=== PATIENT | male | born 1955 | race Caucasian/White ===

== ENCOUNTER 2021-11-21 17:19 | Emergency (ER) | payer OTHER, SELFPAY ==
[2021-11-21] VITALS (10 sets, daily range): BP systolic 149–160; BP diastolic 71–86; PULSE 84–112; RESP 10–49; TEMP 36.7; O2SAT 92–99
--- NOTE | 2021-11-21 17:28 | DI.RAD.S_ITS ---
PROCEDURE: XR CHEST 1V INDICATIONS: dyspnea, tachycardia TECHNIQUE: One view of the chest was acquired. COMPARISON: None. FINDINGS: Surgical changes and devices: None. Lungs and pleura: Lungs are clear. No pleural effusions or pneumothorax. Mediastinum: Mediastinal contours appear normal. Heart size is normal. Bones and chest wall: Multiple right-sided healed old healed rib fractures present. Orthopedic hardware noted in the proximal right humerus. IMPRESSION: No acute cardiopulmonary findings Approved by: Jose Alejandro Oquendo M.D. on 11/21/2021 at 17:11
[2021-11-21 17:56] LABS: Add Manual Diff / Slide Review NO; Basophils Absolute Auto 0 /uL (0-100); Basophils Percent Auto 0.5 % (0-2); Eosinophils Absolute Auto 200 /uL (0-450); Eosinophils Percent Auto 1.8 % (2-4); Hematocrit 39.3 % (41-53); Lymphocytes Absolute Auto 2100 /uL (1100-4500); Lymphocytes Percent Auto 22.7 % (25-40); Mean Corpuscular HGB Conc 33.1 % (30-36); Mean Corpuscular Hemoglobin 29.8 PG (26-34); Mean Corpuscular Volume 89.9 fL (80-100); Monocytes Absolute Auto 700 /uL (0-900); Monocytes Percent Auto 7.9 % (3-14); Neutrophils Absolute Auto 6300 /uL (1500-7000); Neutrophils Percent Auto 67.1 % (50-75); Platelet Count 205 X10^3/uL (150-400); Red Blood Cell Count 4.37 X10^6/uL (4.5-5.9); Red Cell Distribution Width 15.9 % (11.6-14.8); White Blood Cell Count 9.3 X10^3/uL (4.5-11.0)
[2021-11-21 17:57] LABS: Alanine Aminotransferase 26 IU/L (<50); Albumin 4.3 g/dL (3.5-5.0); Albumin Globulin Ratio 1.4 (1.0-2.8); Alkaline Phosphatase 108 U/L (38-126); Aspartate Aminotransferase 25 IU/L (17-59); BUN Creatinine Ratio 14.8 (6-22); Bilirubin Total 0.4 mg/dL (0.2-1.3); Blood Urea Nitrogen 22 mg/dL (9-20); Calcium 8.9 mg/dL (8.4-10.2); Carbon Dioxide 22 mmol/L (22-32); Chloride 109 mmol/L (98-107); Estimated Glomerular Filt Rate 47.5 mL/min (>60); Globulin 3.1 g/dL (1.7-4.1); Glucose 137 mg/dL (80-110); HEMOLYSIS 16 (0-50); Potassium 3.8 mmol/L (3.4-5.1); Sodium 139 mmol/L (137-145); Total Protein 7.4 g/dL (6.3-8.2)
[2021-11-21 17:59] LABS: COVID19 -Nasal RAPID Negative (Negative)
[2021-11-21 18:02] LABS: Creatine Kinase 104 U/L (55-170)
[2021-11-21 18:05] LABS: NT-proBNP (BNP-Adult 18+) 41 pg/mL (<125)
[2021-11-21 18:14] LABS: Troponin I < 0.012 ng/mL (0.01-0.034)
[2021-11-21 18:17] LABS: CKMB % Relative Index 1.6 % (1.5-5.0); Creatine Kinase MB 1.69 ng/mL (<2.37)
--- NOTE | 2021-11-21 18:26 | ED.SOB ---
HPI - SOB/Dyspnea General Chief Complaint: Shortness of Breath/Dyspnea Stated Complaint: difficulty breathing Time Seen by Provider: 11/21/21 17:37 Source: patient Mode of arrival: Ambulatory History of Present Illness HPI Narrative: Male nonsmoker with history of movement disorder presents with a chief complaint of weight describes as trouble breathing for the past week or 10 days. He denies any exertional component and is not dizzy, weak or lightheaded. He denies any cough or chest pain. He has had no fever or chills. He denies nausea, vomiting or diarrhea. He denies runny nose or sore throat but does feel like his throat is dry. He has had relatively recent travel, about 2 months ago he came here from [place]. Review of Systems Review of Systems Narrative: GENERAL: Denies chills, fatigue, malaise, fever, sweats. HEENT: Denies sinus pain, ear pain, sore throat, difficulty swallowing, dizziness. RESPIRATORY: See HPI CARDIOVASCULAR: Denies chest pain, palpitations, orthopnea, edema, GASTROINTESTINAL: Denies nausea, vomiting, abdominal pain, diarrhea, constipation, melena. : Denies dysuria, frequency, incontinence, hematuria, urinary retention. MUSCULOSKELETAL: denies weakness, joint pain, or bony pain SKIN: Denies rash, skin lesions, or other NEUROLOGIC: Denies weakness, headache, numbness, change in speech, confusion, seizures, incoordination. PSYCHIATRIC: No concerning psychosocial issues. 12 point review of systems is negative except for those stated above Exam Narrative Exam Narrative: GENERAL: [62 year old patient appears stated age. Well-developed patient, in mild distress. Subtle movement disorder noted HEAD: Atraumatic. Normocephalic. EYES: Pupils equal round and reactive. Extraocular motions intact. No scleral icterus. No injection or drainage. ENT: Dry mucous membranes Nose without bleeding, purulent drainage. Throat without erythema, tonsillar hypertrophy or exudate. Airway patent. NECK: Trachea midline. Non tender CARDIOVASCULAR: Tachycardic but regular rhythm without murmurs, gallops, or rubs. RESPIRATORY: Clear to auscultation. Breath sounds equal bilaterally. No wheezes, rales, or rhonchi. GASTROINTESTINAL: Abdomen soft, non-tender, nondistended. EXTREMITIES: No edema or joint tenderness. BACK: Nontender without deformity or crepitance. No flank tenderness. NEURO: AOx3. SKIN: No rash or erythema of visible areas Initial Vital Signs Initial Vital Signs: Vital Signs Temperature 98.1 F 11/21/21 17:28 Pulse Rate 112 H 11/21/21 17:28 Respiratory Rate 24 11/21/21 17:28 Blood Pressure 155/86 H 11/21/21 17:28 Pulse Oximetry 96 11/21/21 17:28 Course Orders Ordered: ED Orders 11/21/21 17:28 XR chest 1V Stat EKG-12 Lead Stat Measure peak expiratory flow ONCE RT Consult Eval and Treat Now 11/21/21 17:30 COVID19 -Nasal swab/Pre-Proc Stat Complete Blood Count AUTO DIFF Stat Comprehensive Metabolic Panel Stat D Dimer Stat Lactate (Lactic Acid) Stat NT-proBNP (BNP-Adult 18+) Stat Troponin & CK Cardiac Panel Stat Discontinued Medications Sodium Chloride (Normal Saline 0.9%) 1,000 mls @ 1,000 mls/hr IV BOLUS ONE Stop: 11/21/21 19:32 Last Infusion: 11/21/21 20:45 Dose: 0 mls/hr Documented by: Admin: 11/21/21 18:55 Dose: 1,000 mls/hr Documented by: ODALIS Vital Signs Vital signs: Vital Signs - 8 hr 11/21/21 18:30 11/21/21 19:00 11/21/21 19:30 Pulse Rate 103 H 92 H 90 Respiratory Rate 20 16 20 Blood Pressure 160/74 H Pulse Oximetry 95 97 96 11/21/21 20:00 11/21/21 20:25 11/21/21 20:26 Pulse Rate 84 84 84 Respiratory Rate 20 24 26 H Blood Pressure 149/71 H Pulse Oximetry 99 99 99 MDM - SOB/Dyspnea Lab Data Result diagrams: 11/21/21 17:30 11/21/21 17:30 Labs: Lab Results 11/21/21 11/21/21 11/21/21 Range/Units 17:30 17:30 17:30 WBC 9.3 (4.5-11.0) X10^3/uL RBC 4.37 L (4.5-5.9) X10^6/uL Hgb 13.0 L (13.5-17.5) g/dL Hct 39.3 L (41-53) % MCV 89.9 (80-100) fL MCH 29.8 (26-34) PG MCHC 33.1 (30-36) % RDW 15.9 H (11.6-14.8) % Plt Count 205 (150-400) X10^3/uL Neut % (Auto) 67.1 (50-75) % Lymph % (Auto) 22.7 L (25-40) % [place] % (Auto) 7.9 (3-14) % Eos % (Auto) 1.8 L (2-4) % Baso % (Auto) 0.5 (0-2) % Neut # (Auto) 6300 (6695-0860) /uL Lymph # (Auto) 2100 (7201-8637) /uL [place] # (Auto) 700 (0-900) /uL Eos # (Auto) 200 (0-450) /uL Baso # (Auto) 0 (0-100) /uL D-Dimer (<230) ng/mL Sodium 139 (137-145) mmol/L Potassium 3.8 (3.4-5.1) mmol/L Chloride 109 H (98-107) mmol/L Carbon Dioxide 22 (22-32) mmol/L BUN 22 H (9-20) mg/dL Creatinine 1.49 H (0.66-1.25) mg/dL Estimated GFR 47.5 L (>60) mL/min BUN/Creatinine Ratio 14.8 (6-22) Glucose 137 H (80-110) mg/dL Lactate 1.8 (0.7-2.1) mmol/L Calcium 8.9 (8.4-10.2) mg/dL Total Bilirubin 0.4 (0.2-1.3) mg/dL AST 25 (17-59) IU/L ALT 26 (<50) IU/L Alkaline Phosphatase 108 (38-126) U/L Total Creatine Kinase (55-170) U/L CK-MB (CK-2) (<2.37) ng/mL CK-MB (CK-2) Rel Index (1.5-5.0) % Troponin I (0.01-0.034) ng/mL NT-Pro-B Natriuret Pep 41 (<125) pg/mL Total Protein 7.4 (6.3-8.2) g/dL Albumin 4.3 (3.5-5.0) g/dL Globulin 3.1 (1.7-4.1) g/dL Albumin/Globulin Ratio 1.4 (1.0-2.8) SARS-CoV-2 (PCR) (Negative) 11/21/21 11/21/21 11/21/21 Range/Units 17:30 17:30 17:30 WBC (4.5-11.0) X10^3/uL RBC (4.5-5.9) X10^6/uL Hgb (13.5-17.5) g/dL Hct (41-53) % MCV (80-100) fL MCH (26-34) PG MCHC (30-36) % RDW (11.6-14.8) % Plt Count (150-400) X10^3/uL Neut % (Auto) (50-75) % Lymph % (Auto) (25-40) % [place] % (Auto) (3-14) % Eos % (Auto) (2-4) % Baso % (Auto) (0-2) % Neut # (Auto) (4820-8994) /uL Lymph # (Auto) (5462-1097) /uL [place] # (Auto) (0-900) /uL Eos # (Auto) (0-450) /uL Baso # (Auto) (0-100) /uL D-Dimer 224 (<230) ng/mL Sodium (137-145) mmol/L Potassium (3.4-5.1) mmol/L Chloride (98-107) mmol/L Carbon Dioxide (22-32) mmol/L BUN (9-20) mg/dL Creatinine (0.66-1.25) mg/dL Estimated GFR (>60) mL/min BUN/Creatinine Ratio (6-22) Glucose (80-110) mg/dL Lactate (0.7-2.1) mmol/L Calcium (8.4-10.2) mg/dL Total Bilirubin (0.2-1.3) mg/dL AST (17-59) IU/L ALT (<50) IU/L Alkaline Phosphatase (38-126) U/L Total Creatine Kinase 104 (55-170) U/L CK-MB (CK-2) 1.69 (<2.37) ng/mL CK-MB (CK-2) Rel Index 1.6 (1.5-5.0) % Troponin I < 0.012 (0.01-0.034) ng/mL NT-Pro-B Natriuret Pep (<125) pg/mL Total Protein (6.3-8.2) g/dL Albumin (3.5-5.0) g/dL Globulin (1.7-4.1) g/dL Albumin/Globulin Ratio (1.0-2.8) SARS-CoV-2 (PCR) Negative (Negative) Imaging Data Chest x-ray: Radiologist's Impression: [address] [address] XRay Report Signed Patient: Fabian Kim MR#: [id number] : 1955 Acct:[id number] Age/Sex: 66 / M Date of Service: 11/21/21 Loc: ED Accession Number: [id number] ?? Procedure: XR chest 1V Ordering Provider: Eladio Mao D.O. PROCEDURE:? XR CHEST 1V ? INDICATIONS:? dyspnea, tachycardia ? TECHNIQUE:? One view of the chest was acquired.? ? COMPARISON:? None. ? FINDINGS:? ? Surgical changes and devices:? None.? ? Lungs and pleura:? Lungs are clear.? No pleural effusions or pneumothorax.? ? Mediastinum:? Mediastinal contours appear normal.? Heart size is normal.? ? Bones and chest wall:? Multiple right-sided healed old healed rib fractures present.? Orthopedic hardware noted in the proximal right humerus. ? IMPRESSION:? No acute cardiopulmonary findings ? ? ? Approved by: Jose Alejandro Oquendo M.D. on 11/21/2021 at 17:11? ECG Data Interpretation: Sinus tachycardia with regular rhythm rate [108 ] and free of any signs of ischemia or ectopy. No ST segmental elevation or depression. No T wave inversions MDM Narrative Medical decision making narrative: Multiple etiologies for patient's symptoms considered including: [ Pneumonia versus COVID versus pulmonary embolism versus CHF versus other] Patient's symptoms improved over duration of stay with above-stated therapies. Findings and discharge diagnosis discussed with patient/family followed by verbalization of understanding Return precautions discussed with patient/family whom verbalize understanding. Discharge Plan Departure Patient Disposition: Home Clinical Impression: Shortness of Breath Instructions: DI for Shortness of Breath Activity Restrictions/Additional Instructions: *You have been diagnosed with [shortness of breath, likely some dehydration, labs and x-ray are very reassuring. There is no indication of heart attack, blood clot, pneumonia or COVID *What to do: *Please continue to take your regular medications as directed. [ ] New medication prescriptions sent to your pharmacy: [ ] [ ] New medication written as a paper prescription [ x] No new medications given *Please follow up with your primary care provider in 2-3 days, call for an appointment. Let them know you were seen in the Emergency Department and that we ask that you be seen in follow up. We will electronically transmit a record of today's note if your PCP is in our system *If you do not have a primary care provider please contact the [facility] Resource line at [phone]. They will ask some questions about your medical history and help get you set up with a doctor in the community. *Return to Emergency Department if you should have any new, worsening or concerning symptoms, such as [fever greater than 101 F, shaking chills, worsening pain, persistent vomiting or other bothersome symptoms] Referrals: Miscellaneous,Doctor, MD [Primary Care Provider] -
[2021-11-21 18:50] LABS: D Dimer 224 ng/mL (<230)
[2021-11-21] MEDS: SODIUM CHLORIDE 0.9% 1,000 ML 1000 ML IV (18:55)
[2021-11-21 18:57] LABS: Lactate (Lactic Acid) 1.8 mmol/L (0.7-2.1)
== END 2021-11-21 21:05 | disposition home or self-care (01) ==
PROVIDERS: Emergency Medicine; Emergency Provider Emergency Medicine
DX: R06.02 Shortness of breath (principal); Z20.822 Contact with and (suspected) exposure to COVID-19
CPT/HCPCS: 36415; 71045; 80053; 82550; 82553; 83605; 83880; 84484; 85025; 85379; 87635; 93005; 96360; 96361; 99284; C9803

== ENCOUNTER 2021-12-09 16:44 | Emergency (ER) | payer OTHER, SELFPAY ==
[2021-12-09] VITALS (15 sets, daily range): BP systolic 126–172; BP diastolic 70–102; PULSE 87–112; RESP 14–38; TEMP 36.8; O2SAT 92–98; BMI 36.5
--- NOTE | 2021-12-09 16:55 | DI.RAD.S_ITS ---
PROCEDURE: XR CHEST 2V INDICATIONS: shortness of breath TECHNIQUE: 2 views of the chest were acquired. COMPARISON: [facility], , XR CHEST 1V, 11/21/2021, 17:44. FINDINGS: Surgical changes and devices: Postoperative change of the right shoulder can be seen. Lungs and pleura: Lungs are clear. No pleural effusions or pneumothorax. Mediastinum: Mediastinal contours are normal. Heart size is normal. Atherosclerotic calcification of the aortic arch is noted. Bones and chest wall: No suspicious bony abnormalities. Degenerative changes are seen throughout. Apparent remote trauma can be seen of the left distal clavicle. Remote right lateral rib fractures are seen. Soft tissues appear unremarkable. IMPRESSION: No acute cardiopulmonary process is seen. Postoperative and degenerative changes are seen. Remote posttraumatic changes are noted. Dictated by: Peter Nolasco M.D. on 12/09/2021 at 16:35 Approved by: Peter Nolasco M.D. on 12/09/2021 at 16:36
[2021-12-09 17:11] LABS: Add Manual Diff / Slide Review NO; Basophils Absolute Auto 0 /uL (0-100); Basophils Percent Auto 0.6 % (0-2); Eosinophils Absolute Auto 200 /uL (0-450); Eosinophils Percent Auto 2.6 % (2-4); Hematocrit 34.9 % (41-53); Hemoglobin 11.5 g/dL (13.5-17.5); Lymphocytes Absolute Auto 1400 /uL (1100-4500); Lymphocytes Percent Auto 20.3 % (25-40); Mean Corpuscular HGB Conc 33.1 % (30-36); Mean Corpuscular Hemoglobin 29.6 PG (26-34); Mean Corpuscular Volume 89.4 fL (80-100); Monocytes Absolute Auto 400 /uL (0-900); Monocytes Percent Auto 6.7 % (3-14); Neutrophils Absolute Auto 4600 /uL (1500-7000); Neutrophils Percent Auto 69.8 % (50-75); Platelet Count 166 X10^3/uL (150-400); Red Cell Distribution Width 15.2 % (11.6-14.8); White Blood Cell Count 6.6 X10^3/uL (4.5-11.0)
[2021-12-09 17:21] LABS: Alanine Aminotransferase 29 IU/L (<50); Albumin 3.9 g/dL (3.5-5.0); Albumin Globulin Ratio 1.4 (1.0-2.8); Alkaline Phosphatase 92 U/L (38-126); Aspartate Aminotransferase 24 IU/L (17-59); BUN Creatinine Ratio 15.9 (6-22); Bilirubin Total 0.4 mg/dL (0.2-1.3); Blood Urea Nitrogen 17 mg/dL (9-20); Calcium 8.9 mg/dL (8.4-10.2); Carbon Dioxide 26 mmol/L (22-32); Chloride 106 mmol/L (98-107); Estimated Glomerular Filt Rate > 60.0 mL/min (>60); Globulin 2.7 g/dL (1.7-4.1); Glucose 101 mg/dL (80-110); HEMOLYSIS < 15 (0-50); Potassium 3.7 mmol/L (3.4-5.1); Sodium 138 mmol/L (137-145); Total Protein 6.6 g/dL (6.3-8.2)
[2021-12-09 17:25] LABS: COVID19 -Nasal RAPID Negative (Negative)
[2021-12-09] MEDS: ALBUTEROL 2.5 MG/3 ML NEB (ADULT) INH (18:09)
[2021-12-09 18:39] LABS: COVID19 -Nasal RAPID Negative (Negative)
--- NOTE | 2021-12-09 18:42 | ED.SOB ---
HPI - SOB/Dyspnea General Chief Complaint: Shortness of Breath/Dyspnea Stated Complaint: Sob/cough/trouble swallowing Time Seen by Provider: 12/09/21 17:48 Source: patient Mode of arrival: Ambulatory Limitations: no limitations History of Present Illness HPI Narrative: 66-year-old male has a history of type 2 diabetes presenting today with worsening shortness of breath. He has had ongoing for the last 6 weeks. he was seen evaluated here on November 21, had cardiac he is workup and chest x-ray. He was discharged home. He said he really has not had much improvement. He complains of conversational dyspnea some exertional dyspnea but denies any orthopnea he has no chest tightness or pain or palpitations. He has not had any fever chills or body aches. He moved from [place] approximately 2-3 months ago. He sometimes coughs up phlegm, but denies any hemoptysis. He has not had any body aches fevers or chills. Today it is persistent. Related Data Previous Rx's Medication Instructions Recorded furosemide 20 mg tablet (Lasix) 20 mg PO QAM #3 tab 12/09/21 Allergies Allergy/AdvReac Type Severity Reaction Status Date / Time No Known Drug Allergies Allergy Verified 12/09/21 16:47 Review of Systems Review of Systems Narrative: GENERAL: Denies chills, fatigue, malaise, fever, sweats, travel HEENT: Denies sinus pain, ear pain, sore throat, difficulty swallowing, neck pain RESPIRATORY: See HPI CARDIOVASCULAR: Denies chest pain, palpitations, orthopnea, edema GASTROINTESTINAL: Denies nausea, vomiting, abdominal pain, diarrhea, constipation, melena. : Denies dysuria, frequency, incontinence, hematuria, urinary retention, flank pain. MUSCULOSKELETAL: Denies weakness, joint pain, or bony pain SKIN: No rash, no erythema, no pruritus NEUROLOGIC: Denies weakness, dizziness, headache, numbness, change in speech, confusion PSYCHIATRIC: No concerning psychosocial issues. 12 point review of systems is negative except for those stated above and HPI Patient History Social History Smoking Status: Current every day smoker Smoking Status: Current every day smoker tobacco type: cigarettes Substance Use Type: marijuana Exam Initial Vital Signs Initial Vital Signs: Vital Signs Temperature 98.3 F 12/09/21 16:47 Pulse Rate 104 H 12/09/21 16:47 Respiratory Rate 24 12/09/21 16:47 Blood Pressure 154/76 H 12/09/21 16:47 Pulse Oximetry 97 12/09/21 16:47 GENERAL: Alert 66 male appears older than stated a HEENT: Head atraumatic,EOMI, pupils reactive, face symmetric, moist mucous membranes CARDIOVASCULAR: Regular rate and rhythm without murmurs, rubs or gallops. RESPIRATORY: Breath sounds equal bilaterally, no wheezes rales or rhonchi. Mild conversational dyspnea ABDOMEN: Soft, nontender. Normoactive bowel sounds all 4 quadrants. No guarding or rebound. EXTREMITIES: Normal range of motion, no clubbing or edema. Neurovascularly intact NEUROLOGICAL: Alert and oriented x4 SKIN: Warm, dry, no laceration, no petechiae, no rashes or lesions. Course Orders Ordered: ED Orders 12/09/21 16:55 XR chest 2V Stat EKG-12 Lead Stat Measure peak expiratory flow ONCE RT Consult Eval and Treat Now 12/09/21 17:03 COVID19 -Nasal swab/Pre-Proc Stat Complete Blood Count AUTO DIFF Stat Comprehensive Metabolic Panel Stat Lactate (Lactic Acid) Stat 12/09/21 17:05 BNP [NT-proBNP (BNP-Adult 18+)] Stat D Dimer Stat Troponin & CK Cardiac Panel Stat 12/09/21 18:10 COVID19 -Nasal swab/Pre-Proc Stat 12/09/21 18:54 CT angio chest PE protocol Stat Discontinued Medications Albuterol (Albuterol 2.5 Mg/3 Ml Neb (Adult)) 2.5 mg INH NOW ONE Stop: 12/09/21 18:05 Last Admin: 12/09/21 18:09 Dose: 2.5 mg Documented by: INEZ Methylprednisolone (Methylprednisolone 125 Mg/2 Ml Vial) 125 mg IV NOW ONE Stop: 12/09/21 18:55 Last Admin: 12/09/21 18:58 Dose: 125 mg Documented by: YAIR Vital Signs Vital signs: Vital Signs - 8 hr 12/09/21 17:53 12/09/21 18:00 12/09/21 18:09 Pulse Rate 96 H 87 90 Respiratory Rate 24 16 24 Blood Pressure 142/70 H 145/71 H Pulse Oximetry 92 98 98 12/09/21 18:30 12/09/21 19:00 12/09/21 19:30 Pulse Rate 89 93 H 89 Respiratory Rate 19 Blood Pressure 144/85 H 141/101 H 143/73 H Pulse Oximetry 97 98 95 12/09/21 20:00 12/09/21 20:32 12/09/21 20:34 Pulse Rate 98 H 112 H 106 H Respiratory Rate 38 H 29 H Blood Pressure 172/78 H 126/102 H Pulse Oximetry 94 96 12/09/21 21:00 12/09/21 21:01 12/09/21 21:23 Pulse Rate 93 H 96 H 96 H Respiratory Rate 29 H 27 H 14 Blood Pressure 168/78 H 168/78 H Pulse Oximetry 97 96 96 MDM - SOB/Dyspnea Lab Data Result diagrams: 12/09/21 17:03 12/09/21 17:03 Labs: Lab Results 12/09/21 12/09/21 12/09/21 Range/Units 17:03 17:03 17:03 WBC 6.6 (4.5-11.0) X10^3/uL RBC 3.90 L (4.5-5.9) X10^6/uL Hgb 11.5 L (13.5-17.5) g/dL Hct 34.9 L (41-53) % MCV 89.4 (80-100) fL MCH 29.6 (26-34) PG MCHC 33.1 (30-36) % RDW 15.2 H (11.6-14.8) % Plt Count 166 (150-400) X10^3/uL Neut % (Auto) 69.8 (50-75) % Lymph % (Auto) 20.3 L (25-40) % [place] % (Auto) 6.7 (3-14) % Eos % (Auto) 2.6 (2-4) % Baso % (Auto) 0.6 (0-2) % Neut # (Auto) 4600 (0373-3075) /uL Lymph # (Auto) 1400 (9399-5461) /uL [place] # (Auto) 400 (0-900) /uL Eos # (Auto) 200 (0-450) /uL Baso # (Auto) 0 (0-100) /uL D-Dimer (<230) ng/mL Sodium 138 (137-145) mmol/L Potassium 3.7 (3.4-5.1) mmol/L Chloride 106 (98-107) mmol/L Carbon Dioxide 26 (22-32) mmol/L BUN 17 (9-20) mg/dL Creatinine 1.07 (0.66-1.25) mg/dL Estimated GFR > 60.0 (>60) mL/min BUN/Creatinine Ratio 15.9 (6-22) Glucose 101 (80-110) mg/dL Lactate (0.7-2.1) mmol/L Calcium 8.9 (8.4-10.2) mg/dL Total Bilirubin 0.4 (0.2-1.3) mg/dL AST 24 (17-59) IU/L ALT 29 (<50) IU/L Alkaline Phosphatase 92 (38-126) U/L Total Creatine Kinase (55-170) U/L CK-MB (CK-2) (<2.37) ng/mL CK-MB (CK-2) Rel Index (1.5-5.0) % Troponin I (0.01-0.034) ng/mL NT-Pro-B Natriuret Pep (<125) pg/mL Total Protein 6.6 (6.3-8.2) g/dL Albumin 3.9 (3.5-5.0) g/dL Globulin 2.7 (1.7-4.1) g/dL Albumin/Globulin Ratio 1.4 (1.0-2.8) SARS-CoV-2 (PCR) Negative (Negative) 12/09/21 12/09/21 12/09/21 Range/Units 17:03 17:05 17:05 WBC (4.5-11.0) X10^3/uL RBC (4.5-5.9) X10^6/uL Hgb (13.5-17.5) g/dL Hct (41-53) % MCV (80-100) fL MCH (26-34) PG MCHC (30-36) % RDW (11.6-14.8) % Plt Count (150-400) X10^3/uL Neut % (Auto) (50-75) % Lymph % (Auto) (25-40) % [place] % (Auto) (3-14) % Eos % (Auto) (2-4) % Baso % (Auto) (0-2) % Neut # (Auto) (4301-7759) /uL Lymph # (Auto) (4663-6513) /uL [place] # (Auto) (0-900) /uL Eos # (Auto) (0-450) /uL Baso # (Auto) (0-100) /uL D-Dimer 284 H (<230) ng/mL Sodium (137-145) mmol/L Potassium (3.4-5.1) mmol/L Chloride (98-107) mmol/L Carbon Dioxide (22-32) mmol/L BUN (9-20) mg/dL Creatinine (0.66-1.25) mg/dL Estimated GFR (>60) mL/min BUN/Creatinine Ratio (6-22) Glucose (80-110) mg/dL Lactate 1.0 (0.7-2.1) mmol/L Calcium (8.4-10.2) mg/dL Total Bilirubin (0.2-1.3) mg/dL AST (17-59) IU/L ALT (<50) IU/L Alkaline Phosphatase (38-126) U/L Total Creatine Kinase 128 (55-170) U/L CK-MB (CK-2) 1.87 (<2.37) ng/mL CK-MB (CK-2) Rel Index 1.5 (1.5-5.0) % Troponin I < 0.012 (0.01-0.034) ng/mL NT-Pro-B Natriuret Pep 513 H (<125) pg/mL Total Protein (6.3-8.2) g/dL Albumin (3.5-5.0) g/dL Globulin (1.7-4.1) g/dL Albumin/Globulin Ratio (1.0-2.8) SARS-CoV-2 (PCR) (Negative) 12/09/21 Range/Units 18:10 WBC (4.5-11.0) X10^3/uL RBC (4.5-5.9) X10^6/uL Hgb (13.5-17.5) g/dL Hct (41-53) % MCV (80-100) fL MCH (26-34) PG MCHC (30-36) % RDW (11.6-14.8) % Plt Count (150-400) X10^3/uL Neut % (Auto) (50-75) % Lymph % (Auto) (25-40) % [place] % (Auto) (3-14) % Eos % (Auto) (2-4) % Baso % (Auto) (0-2) % Neut # (Auto) (2458-5240) /uL Lymph # (Auto) (0029-4796) /uL [place] # (Auto) (0-900) /uL Eos # (Auto) (0-450) /uL Baso # (Auto) (0-100) /uL D-Dimer (<230) ng/mL Sodium (137-145) mmol/L Potassium (3.4-5.1) mmol/L Chloride (98-107) mmol/L Carbon Dioxide (22-32) mmol/L BUN (9-20) mg/dL Creatinine (0.66-1.25) mg/dL Estimated GFR (>60) mL/min BUN/Creatinine Ratio (6-22) Glucose (80-110) mg/dL Lactate (0.7-2.1) mmol/L Calcium (8.4-10.2) mg/dL Total Bilirubin (0.2-1.3) mg/dL AST (17-59) IU/L ALT (<50) IU/L Alkaline Phosphatase (38-126) U/L Total Creatine Kinase (55-170) U/L CK-MB (CK-2) (<2.37) ng/mL CK-MB (CK-2) Rel Index (1.5-5.0) % Troponin I (0.01-0.034) ng/mL NT-Pro-B Natriuret Pep (<125) pg/mL Total Protein (6.3-8.2) g/dL Albumin (3.5-5.0) g/dL Globulin (1.7-4.1) g/dL Albumin/Globulin Ratio (1.0-2.8) SARS-CoV-2 (PCR) Negative (Negative) Imaging Data Chest x-ray: Radiologist's Impression: PROCEDURE:? XR CHEST 2V ? INDICATIONS:? shortness of breath ? TECHNIQUE:? 2 views of the chest were acquired.? ? COMPARISON:? [facility], , XR CHEST 1V, 11/21/2021, 17:44. ? FINDINGS:? ? Surgical changes and devices:? Postoperative change of the right shoulder can be seen. ? Lungs and pleura:? Lungs are clear.? No pleural effusions or pneumothorax.? ? Mediastinum:? Mediastinal contours are normal.? Heart size is normal.? Atherosclerotic calcification of the aortic arch is noted.? ? Bones and chest wall:? No suspicious bony abnormalities.? Degenerative changes are seen throughout.? Apparent remote trauma can be seen of the left distal clavicle.? Remote right lateral rib fractures are seen.? Soft tissues appear unremarkable.? ? ? IMPRESSION:? ? No acute cardiopulmonary process is seen.? ? Postoperative and degenerative changes are seen.? ? Remote posttraumatic changes are noted. ? ? Dictated by: Peter Nolasco M.D. on 12/09/2021 at 16:35? CT scan - chest: Radiologist's Impression: PROCEDURE:? CT ANGIO CHEST PE PROTOCOL ? INDICATIONS:? short of breath ? TECHNIQUE:? After the administration of intravenous contrast, 2 mm thick sections acquired from the pulmonary apices to the posterior costophrenic angles.? 3-dimensional maximum intensity projection (MIP) coronal and sagittal reformats were then acquired through the thorax.? For radiation dose reduction, the following was used:? automated exposure control, adjustment of mA and/or kV according to patient size.? ? COMPARISON:? [facility], CR, XR CHEST 1V, 11/21/2021, 17:44.? [facility], CR, XR CHEST 2V, 12/09/2021, 16:59. ? FINDINGS:? Image quality:? Excellent.? ? Pulmonary arteries:? Pulmonary arteries are normal in size, and demonstrate no intraluminal filling defects to suggest central pulmonary embolism.? ? Lungs and pleura:? Mild bibasilar atelectasis.? No focal airspace disease.? No suspicious pulmonary nodules or masses.? No pleural effusions or pneumothorax.? Central and peripheral airways are patent.? ? Mediastinum:? Heart size is normal, without pericardial effusion.? Atherosclerotic calcifications of the coronary arteries.? No evidence for acute right-sided heart strain. ?No mediastinal or hilar adenopathy.? Thoracic aorta is normal in caliber and enhancement.? Esophagus is normal in caliber, without hiatal hernia.? ? Bones and chest wall:? No suspicious bony lesions.? No acute compression fractures.? Healed rib fracture deformities of multiple lateral right sided ribs.? Thyroid gland is unremarkable.? No axillary or supraclavicular adenopathy.? ? Abdomen:? Visualized upper abdominal solid organs appear normal in the early arterial phase of enhancement.? ? IMPRESSION:? ? 1. No acute cardiopulmonary abnormalities.? No acute pulmonary emboli.? No evidence for acute right-sided heart strain. ? 2. Atherosclerotic vascular disease. ? ? ? Dictated by: Marcel Baeza M.D. on 12/09/2021 at 19:59 ? ? ECG Data Interpretation: EKG 1. Normal sinus rhythm rate 94 p.r. 150 QRS [address] changes or T-wave inversions EKG 2. Normal sinus rhythm rate 95 no changes from prior MDM Narrative Medical decision making narrative: Patient has had chronic ongoing shortness of breath with exertion PE study is negative troponins are negative. BNP mildly elevated today at 500 which is new from previously. Who will put patient on a short course of Lasix to see if he has improvement. No need for antibiotics at this time. Patient is given a prescription and will start tomorrow. Discharge Plan Departure Patient Disposition: Home Clinical Impression: Congestive heart failure Instructions: Heart Failure Activity Restrictions/Additional Instructions: *You have been diagnosed with congestive heart failure *What to do: At this time he may have some fluid retention on your lungs causing her breathing difficulty. No need for antibiotics at this time this may also require evaluation with Cardiology. You are seen to have arterial disease on your CT scan. It is important that you establish primary care provider says this can be worked up. You are at risk for having heart attack and stroke *Continue to take medications as directed Lasix 20 mg once a day in the morning for 3 days *Follow up with your primary care provider in 2-3 days or call [phone] *Return to ER if you should have increasing shortness of breath, fever, chest pain, palpitations any new, worsening or concerning symptoms Prescriptions: New furosemide [Lasix] 20 mg tablet 20 mg PO QAM Qty: 3 0RF Referrals: Miscellaneous,DoctorMD [Primary Care Provider] -
--- NOTE | 2021-12-09 18:54 | DI.CT.S_ITS ---
PROCEDURE: CT ANGIO CHEST PE PROTOCOL INDICATIONS: short of breath TECHNIQUE: After the administration of intravenous contrast, 2 mm thick sections acquired from the pulmonary apices to the posterior costophrenic angles. 3-dimensional maximum intensity projection (MIP) coronal and sagittal reformats were then acquired through the thorax. For radiation dose reduction, the following was used: automated exposure control, adjustment of mA and/or kV according to patient size. COMPARISON: [facility], CR, XR CHEST 1V, 11/21/2021, 17:44. [facility], CR, XR CHEST 2V, 12/09/2021, 16:59. FINDINGS: Image quality: Excellent. Pulmonary arteries: Pulmonary arteries are normal in size, and demonstrate no intraluminal filling defects to suggest central pulmonary embolism. Lungs and pleura: Mild bibasilar atelectasis. No focal airspace disease. No suspicious pulmonary nodules or masses. No pleural effusions or pneumothorax. Central and peripheral airways are patent. Mediastinum: Heart size is normal, without pericardial effusion. Atherosclerotic calcifications of the coronary arteries. No evidence for acute right-sided heart strain. No mediastinal or hilar adenopathy. Thoracic aorta is normal in caliber and enhancement. Esophagus is normal in caliber, without hiatal hernia. Bones and chest wall: No suspicious bony lesions. No acute compression fractures. Healed rib fracture deformities of multiple lateral right sided ribs. Thyroid gland is unremarkable. No axillary or supraclavicular adenopathy. Abdomen: Visualized upper abdominal solid organs appear normal in the early arterial phase of enhancement. IMPRESSION: 1. No acute cardiopulmonary abnormalities. No acute pulmonary emboli. No evidence for acute right-sided heart strain. 2. Atherosclerotic vascular disease. Dictated by: Marcel Baeza M.D. on 12/09/2021 at 19:59 Approved by: Marcel Baeza M.D. on 12/09/2021 at 20:06
[2021-12-09] MEDS: methylPREDNISolone 125 MG/2 ML VIAL IV (18:58)
[2021-12-09 19:08] LABS: D Dimer 284 ng/mL (<230)
[2021-12-09 19:09] LABS: Creatine Kinase 128 U/L (55-170)
[2021-12-09 19:22] LABS: NT-proBNP (BNP-Adult 18+) 513 pg/mL (<125); Troponin I < 0.012 ng/mL (0.01-0.034)
[2021-12-09 19:25] LABS: CKMB % Relative Index 1.5 % (1.5-5.0); Creatine Kinase MB 1.87 ng/mL (<2.37)
== END 2021-12-09 21:25 | disposition home or self-care (01) ==
PROVIDERS: Emergency Medicine; Emergency Provider Emergency Medicine
DX: I50.9 Heart failure, unspecified (principal); F17.210 Nicotine dependence, cigarettes, uncomplicated; Z20.822 Contact with and (suspected) exposure to COVID-19
CPT/HCPCS: 36415; 71046; 71275; 80053; 82550; 82553; 83605; 83880; 84484; 85025; 85379; 87635; 93005; 93010; 94640; 96374; 99284; C9803; J2930; J7613; Q9967

== ENCOUNTER 2022-04-24 09:48 | Emergency (ER) | payer OTHER, SELFPAY ==
[2022-04-24] VITALS (7 sets, daily range): BP systolic 172–189; BP diastolic 79–85; PULSE 90–113; RESP 22; TEMP 37.1; O2SAT 94–100; BMI 35.2
--- NOTE | 2022-04-24 11:12 | DI.RAD.S_ITS ---
PROCEDURE: XR LUMBAR SPINE MIN 4V INDICATIONS: pain 3 weeks TECHNIQUE: 5 views of the lumbar spine were acquired, including bilateral oblique views. COMPARISON: None. FINDINGS: Bones: 5 nonrib-bearing vertebrae are present. 6 mm retrolisthesis L5 on S1, 4 mm retrolisthesis L2 on L3, 4 mm retrolisthesis L1 on L2. Moderate multilevel degenerative changes with disc height loss and endplate spurring and facet arthropathy. Multiple nonacute appearing vertebral body compression fracture is present. Approximately 25% vertebral body height loss superior endplate compression deformity of L4. 1/3 vertebral body height loss compression deformity of L2 and L1. Soft tissues: Overlying bowel gas pattern is normal. No suspicious soft tissue calcifications. Oblique images: No definite pars defects identified. IMPRESSION: 1. Moderate multilevel degenerative changes of the lumbar spine. 2. Multiple nonacute appearing but technically age indeterminate vertebral body compression fractures visualized. No definite acute fracture identified radiographically. If clinically indicated CT or MRI could be obtained for further evaluation. Dictated by: Josue Jackson M.D. on 04/24/2022 at 12:49 Approved by: Josue Jackson M.D. on 04/24/2022 at 12:57
[2022-04-24] MEDS: KETOROLAC 30 MG/ML VIAL 15 MG IM (12:36)
[2022-04-24] MEDS: ACETAMINOPHEN 325 MG TABLET 650 MG PO (12:36)
[2022-04-24] MEDS: LIDOCAINE PATCH 1 EACH ADH..PATCH TOP (12:37)
--- NOTE | 2022-04-24 12:48 | ED.BACK ---
HPI - Back Pain/Injury <CHOCO Sánchez - Last Filed: 04/24/22 14:23> General Chief Complaint: Back Pain/Injury Stated Complaint: lower back pain Time Seen by Provider: 04/24/22 12:10 Source: patient History of Present Illness HPI Narrative: This is a 66-year-old male who presents to the emergency department complaining of worsening low back pain over the last week and endorses it has moved in to his right hip/buttock region. He denies any shooting pain down his leg but endorses this pain has been sharp and unrelenting. He endorses history of restless legs syndrome, states that he takes repair in all for this. [facility] and walks with a cane at baseline. He states that he took 800 mg of ibuprofen for his pain and that is usually what he does when this is bad. She denies any weakness in his lower, denies any incontinence, denies any recent illness or fever. Related Data Previous Rx's Medication Instructions Recorded furosemide 20 mg tablet (Lasix) 20 mg PO QAM #3 tabs 12/09/21 lidocaine 5 % topical patch 1 patch topical DAILY #15 ea 04/24/22 (Lidoderm) methocarbamol 500 mg tablet 500 mg PO TID PRN muscle spasm #14 04/24/22 tabs Allergies Allergy/AdvReac Type Severity Reaction Status Date / Time No Known Drug Allergies Allergy Verified 12/09/21 16:47 Review of Systems <CHOCO Sánchez - Last Filed: 04/24/22 14:23> Review of Systems Narrative: General: denies fever, chills Head/Neck: denies headache, neck pain Eyes: denies visual changes, eye pain Cardio: denies chest pain, palpitations Respiratory: denies shortness of breath, cough GI: denies abdominal pain, nausea, vomiting, or diarrhea : denies dysuria, hematuria or flank pain MSK: denies new joint pain, muscle weakness or swelling, endorses right hip pain which is constant, denies any radiation from his hip. Skin: denies rash, itching or wound Neuro: denies numbness, tingling, dizziness Patient History <CHOCO Sánchez - Last Filed: 04/24/22 14:23> Social History Smoking Status: Current every day smoker Smoking Status: Current every day smoker tobacco type: cigarettes alcohol intake frequency: 0-2 drinks per day Substance Use Type: marijuana Exam <CHOCO Sánchez - Last Filed: 04/24/22 14:23> Narrative Exam Narrative: Independently reviewed vitals signs and nursing notes. General: Awake, alert, nontoxic, no cardiorespiratory distress Head/Neck: Atraumatic, neck supple Eyes: EOMI, conjunctiva normal Nose: nares patent, no rhinorrhea Mouth/Throat: moist mucus membranes, posterior pharynx without erythema or lesion Cardio: Regular rate and rhythm, no peripheral edema Respiratory: respirations unlabored without wheezing, stridor, or rales. No retractions, hypoxia or tachypnea GI: Abdomen soft, protuberant, nontender, no guarding MSK: Moves all extremities, neurovascularly intact, range of motion without deficit Skin: Normal capillary refill, no rash Neuro: Normal speech and cognition, normal gait Initial Vital Signs Initial Vital Signs: Vital Signs Pulse Rate 113 H 04/24/22 10:22 Pulse Oximetry 94 04/24/22 10:22 <Suni Mendez DO - Last Filed: 04/26/22 10:28> Initial Vital Signs Initial Vital Signs: Vital Signs Pulse Rate 113 H 04/24/22 10:22 Pulse Oximetry 94 04/24/22 10:22 Course <CHOCO Sánchez - Last Filed: 04/24/22 14:23> Orders Ordered: Discontinued Medications Acetaminophen (Acetaminophen 325 Mg Tablet) 650 mg PO NOW ONE Stop: 04/24/22 12:29 Last Admin: 04/24/22 12:36 Dose: 650 mg Documented By: ANUP Ketorolac Tromethamine (Ketorolac 30 Mg/Ml Vial) 15 mg IM NOW ONE Stop: 04/24/22 12:29 Last Admin: 04/24/22 12:36 Dose: 15 mg Documented By: ANUP Lidocaine (Lidocaine Patch 1 Each Adh..Patch) 1 each TOP NOW ONE Stop: 04/24/22 12:30 Last Admin: 04/24/22 12:37 Dose: 1 each Documented By: ANUP Vital Signs Vital signs: Vital Signs - 8 hr 04/24/22 11:13 04/24/22 10:22 04/24/22 10:24 Temperature 98.8 F Pulse Rate 100 H 113 H Respiratory Rate 22 Blood Pressure 189/85 H 189/85 H Pulse Oximetry 100 94 Oxygen Delivery Method Room Air 04/24/22 10:24 04/24/22 10:30 04/24/22 11:00 Temperature Pulse Rate 100 H 99 H 90 Respiratory Rate Blood Pressure Pulse Oximetry 94 95 94 Oxygen Delivery Method 04/24/22 13:10 04/24/22 13:11 04/24/22 13:11 Temperature Pulse Rate 98 H 98 H Respiratory Rate Blood Pressure 172/79 H Pulse Oximetry 96 96 Oxygen Delivery Method <Suni Mendez DO - Last Filed: 04/26/22 10:28> Orders Ordered: Discontinued Medications Acetaminophen (Acetaminophen 325 Mg Tablet) 650 mg PO NOW ONE Stop: 04/24/22 12:29 Last Admin: 04/24/22 12:36 Dose: 650 mg Documented By: ANUP Ketorolac Tromethamine (Ketorolac 30 Mg/Ml Vial) 15 mg IM NOW ONE Stop: 04/24/22 12:29 Last Admin: 04/24/22 12:36 Dose: 15 mg Documented By: ANUP Lidocaine (Lidocaine Patch 1 Each Adh..Patch) 1 each TOP NOW ONE Stop: 04/24/22 12:30 Last Admin: 04/24/22 12:37 Dose: 1 each Documented By: ANUP Vital Signs Vital signs: Vital Signs - 8 hr 04/24/22 11:13 04/24/22 10:22 04/24/22 10:24 Temperature 98.8 F Pulse Rate 100 H 113 H Respiratory Rate 22 Blood Pressure 189/85 H 189/85 H Pulse Oximetry 100 94 Oxygen Delivery Method Room Air 04/24/22 10:24 04/24/22 10:30 04/24/22 11:00 Temperature Pulse Rate 100 H 99 H 90 Respiratory Rate Blood Pressure Pulse Oximetry 94 95 94 Oxygen Delivery Method 04/24/22 13:10 04/24/22 13:11 04/24/22 13:11 Temperature Pulse Rate 98 H 98 H Respiratory Rate Blood Pressure 172/79 H Pulse Oximetry 96 96 Oxygen Delivery Method MDM - Back Pain/Injury <CHOCO Sánchez - Last Filed: 04/24/22 14:23> Imaging Data lumbar spine XR: Radiologist's Impression: PROCEDURE:? XR LUMBAR SPINE MIN 4V ? INDICATIONS:? pain 3 weeks ? TECHNIQUE:? 5 views of the lumbar spine were acquired, including bilateral oblique views. ? ? COMPARISON:? None. ? FINDINGS:? ? Bones:? 5 nonrib-bearing vertebrae are present.? 6 mm retrolisthesis L5 on S1, 4 mm retrolisthesis L2 on L3, 4 mm retrolisthesis L1 on L2.? Moderate multilevel degenerative changes with disc height loss and endplate spurring and facet arthropathy.? Multiple nonacute appearing vertebral body compression fracture is present.? Approximately 25% vertebral body height loss superior endplate compression deformity of L4.? 1/3 vertebral body height loss compression deformity of L2 and L1. ? Soft tissues:? Overlying bowel gas pattern is normal.? No suspicious soft tissue calcifications.? ? Oblique images:? No definite pars defects identified.? ? ? IMPRESSION:? 1. Moderate multilevel degenerative changes of the lumbar spine. 2. Multiple nonacute appearing but technically age indeterminate vertebral body compression fractures visualized.? No definite acute fracture identified radiographically.? If clinically indicated CT or MRI could be obtained for further evaluation.? ? ? Dictated by: Josue Jackson M.D. on 04/24/2022 at 12:49 ? ? Approved by: Josue Jackson M.D. on 04/24/2022 at 12:57 ? [facility] Narrative Medical decision making narrative: This is a 66-year-old male who presents to the emergency department complaining worsening low back pain with right-sided sciatica symptoms over the last 1-3 weeks. He denies any weakness, any recent illness or fever, denies any incontinence or urinary retention issues. He is nontender along his lumbar spine, walks with a cane at baseline. No prior lumbar spine imaging done, no recent trauma or known trauma. X-ray shows moderate multilevel degenerative changes of the lumbar spine and multiple nonacute appearing vertebral body compression fractures or without the acute fracture. Patient denies any recent injury. Maximum vertebral loss was 25% of L4. Discussed these degenerative changes and associated muscular strain can be improved with physical therapy. He had been using ibuprofen at home for pain with nothing else and states it was not adequate. He was prescribed lidocaine patches and methocarbamol for muscle spasms. Encouraged to use Tylenol and ibuprofen to treat his pain and [facility] and/or physical therapy or other outpatient referrals. Multiple etiologies of back pain considered including; Epidural abscess, cauda equina, mass occupying lesion, lumbar fracture, intra-abdominal pathology chronic neuropathic pain and other considered Patient is appropriate and amenable to discharge home. Vital signs are stable on repeat examination is unremarkable. Patient has been informed of results. Patient has been given strict return to ER precautions for any new or worsening symptoms. Patient understands to follow up closely with outpatient providers as instructed. Patient understands plan and agrees to discharge home. All questions and concerns answered at this time. Discharge Plan Departure Patient Disposition: Home Clinical Impression: Multilevel lumbosacral spondylosis with radiculopathy Acute back pain with sciatica Qualifiers: Laterality: right Qualified Code(s): M54.41 - Lumbago with sciatica, right side Instructions: DI for Back Pain With Sciatica, Lumbar Radiculopathy Activity Restrictions/Additional Instructions: *You have been diagnosed with degenerative changes of your lumbar spine with radiculopathy/sciatica symptoms on the right. [facility] and ask for a referral to physical therapy and for ongoing management of this. I will leave that if your restless leg is treated well, your lumbar pain would improve also especially the sciatica. Please try anti-inflammatories every 8 hours like 800 mg of ibuprofen with food and water, lidocaine patches if there are helpful, your ropinirole, and muscle relaxers if they are helpful. Please follow-up with your care providers if this is worsening return to the emergency department if you have any new weakness, incontinence, worsening pain, or other concern. *What to do: *Please continue to take your regular medications as directed. [ x] New medication prescriptions sent to your pharmacy: [ [facility]] [ ] New medication written as a paper prescription [ ] No new medications given *Please follow up with your primary care provider in 2-3 days, call for an appointment. Let them know you were seen in the Emergency Department and that we asked that you be seen for follow-up. We will electronically transmit a record of today's note if your PCP is in our system *If you do not have a primary care provider please contact [phone] to establish care with one of the [facility] primary care providers. *Return to Emergency Department if you should have any new, worsening or concerning symptoms, such as [fever greater than 101F, chills, worsening pain, persistent vomiting or other bothersome symptoms] Prescriptions: New methocarbamol 500 mg tablet 500 mg PO TID PRN (Reason: muscle spasm) Qty: 14 0RF lidocaine [Lidoderm] 5 % adhesive patch,medicated 1 patch topical DAILY Qty: 15 0RF Rx Instructions: leave on most painful area for up to 12 hrs No Action furosemide [Lasix] 20 mg tablet 20 mg PO QAM Qty: 3 0RF Referrals: Miscellaneous,Doctor, MD [Primary Care Provider] - Visit Report Forms: Patient Portal/API <Suni Mendez DO - Last Filed: 04/26/22 10:28> Cosign ED Attending Lgature Attestation: I was immediately available in the department for consultation. Documentation has been reviewed. I agree with assessment and plan.
== END 2022-04-24 13:27 | disposition home or self-care (01) ==
PROVIDERS: Emergency Provider Nurse Practitioner Critical Care Medicine
DX: M54.41 Lumbago with sciatica, right side (principal); M47.27 Other spondylosis with radiculopathy, lumbosacral region
CPT/HCPCS: 72110; 96372; 99283; 99284; J1885